=== PATIENT | female | born 1975 | race Caucasian/White ===

== ENCOUNTER 2017-03-17 08:58 | Emergency (ER) | payer OTHER ==
[~2017-03-17] VITALS: Ht 175.3 cm; Wt 91.2 kg
[~2017-03-17 08:58] MED LIST: CYCL-331 PO; HYDR-971 PO; PRED20TA PO
[2017-03-17] MEDS ORDERED: IPRATRPIUM/ALBUTEROL 0.5/2.5MG 3 ML NEBU. ONE (09:21)
--- NOTE | 2017-03-17 09:33 | PHYS DOC ---
Past History Past Medical History: No Pertinent History Past Surgical History: Appendectomy, Tubal ligation Smoking: Cigarettes, Less than 1pk/day Alcohol Use: Rarely Drug Use: None Adult General Chief Complaint Chief Complaint: COUGH HPI HPI 41-year-old female patient with history of smoking complaining of productive cough for the last 3 days with yellow and green sputum and shortness of breath with chest soreness during episodes of cough. Patient complaining of nasal congestion and sore throat because of cough and headache generalized weakness without fever and chills, vomiting and diarrhea, sick contact. Review of Systems Review of Systems Constitutional: Denies fever or chills [] Eyes: Denies change in visual acuity, redness, or eye pain [] HENT: Reports nasal congestion and sore throat [] Respiratory: Reports cough and shortness of breath [] Cardiovascular: No additional information not addressed in HPI [] GI: Denies abdominal pain, nausea, vomiting, bloody stools or diarrhea [] : Denies dysuria or hematuria [] Musculoskeletal: Denies back pain or joint pain [] Integument: Denies rash or skin lesions [] Neurologic: Denies headache, focal weakness or sensory changes [] Endocrine: Denies polyuria or polydipsia [] All other systems were reviewed and found to be within normal limits, except as documented in this note. Current Medications Current Medications Current Medications Medications (Trade) Dose Ordered Sig/Juan Start Time Stop Time Status Last Admin Dose Admin Albuterol/ Ipratropium (Duoneb) 3 ml STK-MED ONCE 03/17/17 09:21 03/17/17 09:22 DC Benzonatate (Tessalon Perle) 100 mg 1X ONCE 03/17/17 09:45 03/17/17 09:46 Ibuprofen (Motrin) 800 mg 1X ONCE 03/17/17 09:45 03/17/17 09:46 Allergies Allergies Allergies Coded Allergies Type Severity Reaction Last Updated Verified aspirin Allergy Intermediate 12/25/15 Yes Physical Exam Physical Exam Constitutional: Well developed, well nourished, moderate distress, non-toxic appearance. [] HENT: Normocephalic, atraumatic, bilateral external ears normal, oropharynx moist, pharyngeal erythema without oral exudates, nasal congestion Eyes: PERRLA, EOMI, conjunctiva normal, no discharge. [] Neck: Normal range of motion, no tenderness, supple, no stridor. [] Cardiovascular: Tachycardic, no murmur [] Lungs & Thorax: No respiratory distress, mild rhonchi bilaterally Abdomen: Bowel sounds normal, soft, no tenderness, no masses, no pulsatile masses. [] Skin: Warm, dry, no erythema, no rash. [] Back: No tenderness, no CVA tenderness. [] Extremities: No tenderness, no cyanosis, no clubbing, ROM intact, no edema. [] Neurologic: Alert and oriented X 3, normal motor function, normal sensory function, no focal deficits noted. [] Psychologic: Affect normal, judgement normal, mood normal. [] Current Patient Data Vital Signs Vital Signs Date Time Temp Pulse Resp B/P (MAP) Pulse Ox O2 Delivery O2 Flow Rate FiO2 03/17/17 09:25 100 Room Air 03/17/17 09:12 99.0 113 20 EKG EKG [] Radiology/Procedures Radiology/Procedures [] Course & Med Decision Making Course & Med Decision Making Pertinent Labs reviewed. (See chart for details) Evaluation of patient in ER showed 41-year-old male patient with complaining of productive cough for 3 days with shortness of breath and nasal congestion and chest soreness. She felt better with DuoNeb in ER. Flu test was negative. Patient instructed to quit smoking and plan to discharge home with diagnoses of acute bronchitis. [] Dragon Disclaimer Dragon Disclaimer This electronic medical record was generated, in whole or in part, using a voice recognition dictation system. Departure Departure: Impression: Primary Impression: Acute bronchitis Additional Impressions: Tobacco abuse Tobacco abuse counseling Dyspnea Disposition: 01 HOME, SELF-CARE (At 1035) Condition: IMPROVED Referrals: [facility] (PCP) Patient Instructions: Acute Bronchitis, Smoking Cessation Additional Instructions: Quit smoking Drink plenty of liquids Follow-up with your primary care physician in 3 -5 days if is not getting better Return to ER as needed Scripts Albuterol Sulfate (VENTOLIN HFA INHALER) 18 Gm Hfa.aer.ad 2 PUFF IH PRN Q4HRS Y for FOR ASTHMA, #1 INHALER 0 Refills Prov: STACY ROPER MD 03/17/17 Hydrocodone/Chlorphen P-Stirex (Tussionex Pennkinetic Susp) 115 Ml Justyna.er.12h 5 ML PO BID, #120 ML Prov: STACY ROPER MD 03/17/17 Methylprednisolone (MEDROL) 4 Mg Tab.ds.pk 1 PKG PO UD, #1 PKG Prov: STACY ROPER MD 03/17/17 Azithromycin (ZITHROMAX) 250 Mg Tablet 1 PKG PO UD, #6 TAB Prov: STACY ROPER MD 03/17/17 Problem Qualifiers STACY ROPER MD Mar 17, 2017 09:33
[2017-03-17] MEDS ORDERED: BENZONATATE 100 MG CAPSULE. PO ONE (09:45)
[2017-03-17] MEDS ORDERED: IBUPROFEN 600 MG TABLET. PO ONE (09:45)
[2017-03-17] MEDS ORDERED: IPRATRPIUM/ALBUTEROL 0.5/2.5MG 3 ML NEBU. NEB ONE (09:45)
[2017-03-17 09:50] VITALS: BP 110/73
[2017-03-17 10:28] LABS: INFLUENZA A PATIENT NEGATIVE (NEGATIVE); INFLUENZA B PATIENT NEGATIVE (NEGATIVE)
[2017-03-17] MEDS ORDERED: METH4TAB2 PO (10:39)
[2017-03-17] MEDS ORDERED: AZIT250T PO (10:39)
[2017-03-17] MEDS ORDERED: HYDR115S2 PO (10:39)
[2017-03-17] MEDS ORDERED: ALBU18HF IH (10:39)
== END 2017-03-17 10:59 | disposition home or self-care (01) ==
LOC: ER 08:58
DX: J20.9 Acute bronchitis, unspecified (principal); R06.00 Dyspnea, unspecified; F17.210 Nicotine dependence, cigarettes, uncomplicated; Z71.6 Tobacco abuse counseling; Z88.6 Allergy status to analgesic agent
CPT/HCPCS: 87804; 94640; 99284; J7620

== ENCOUNTER 2018-08-22 08:05 | Emergency (ER) | payer OTHER ==
[~2018-08-22] VITALS: Ht 175.3 cm; Wt 96.2 kg
[~2018-08-22 08:05] MED LIST changes: +ALBU2.5V8 IH; +AZIT250T PO; +HYDR-3165 PO; -HYDR-971 PO; +HYDR115S2 PO; +METH4TAB2 PO
[2018-08-22] MEDS ORDERED: PRED-220 PO (09:12)
--- NOTE | 2018-08-22 09:12 | PHYS DOC ---
Past History Past Medical History: No Pertinent History Past Surgical History: Appendectomy, Tubal ligation Smoking: Cigarettes, Less than 1pk/day Alcohol Use: Occasionally Drug Use: None Adult General Chief Complaint Chief Complaint: [facility] HPI 42-year-old female presents with right shoulder pain. The patient isn't having intermittent pain in his right shoulder. We'll weeks. 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 She presents today because she woke up this morning and the pain was worse and she had some tingling sensation in all 5 fingers. Her pain is mostly along the superior aspect of the shoulder but does radiate into the deltoid. She denies any specific injury or trauma. It just seemed to be gradually getting worse. She has been taking some ibuprofen without much relief. She denies any other injuries or complaints. Review of Systems Review of Systems Constitutional: Denies fever or chills [] Eyes: Denies change in visual acuity, redness, or eye pain [] HENT: Denies nasal congestion or sore throat [] Respiratory: Denies cough or shortness of breath [] Cardiovascular: No additional information not addressed in HPI [] GI: Denies abdominal pain, nausea, vomiting, bloody stools or diarrhea [] : Denies dysuria or hematuria [] Musculoskeletal: Right shoulder pain [] Integument: Denies rash or skin lesions [] Neurologic: Denies headache, focal weakness or sensory changes [] Endocrine: Denies polyuria or polydipsia [] All other systems were reviewed and found to be within normal limits, except as documented in this note. Allergies Allergies Allergies Coded Allergies Type Severity Reaction Last Updated Verified aspirin Allergy Intermediate 08/22/18 Yes Physical Exam Physical Exam Constitutional: Well developed, well nourished, no acute distress, non-toxic appearance. [] HENT: Normocephalic, atraumatic, bilateral external ears normal, oropharynx moist, no oral exudates, nose normal. [] Eyes: PERRLA, EOMI, conjunctiva normal, no discharge. [] Neck: Normal range of motion, no tenderness, supple, no stridor. [] Cardiovascular:Heart rate regular rhythm, no murmur [] Lungs & Thorax: Bilateral breath sounds clear to auscultation [] Abdomen: Bowel sounds normal, soft, no tenderness, no masses, no pulsatile masses. [] Skin: Warm, dry, no erythema, no rash. [] Back: No tenderness, no CVA tenderness. [] Extremities: Right shoulder limited range of motion testing due to pain, superior shoulder pain with empty can test. Tenderness over supraspinatus distribution.[] Neurologic: Alert and oriented X 3, normal motor function, normal sensory function, no focal deficits noted. [] Psychologic: Affect normal, judgement normal, mood normal. [] Current Patient Data Vital Signs Vital Signs Date Time Temp Pulse Resp B/P (MAP) Pulse Ox O2 Delivery O2 Flow Rate FiO2 08/22/18 08:16 98.4 80 18 99 Room Air EKG EKG [] Radiology/Procedures Radiology/Procedures [] Course & Med Decision Making Course & Med Decision Making Pertinent Labs and Imaging studies reviewed. (See chart for details) I believe the patient has supraspinatus tendinitis and/or bursitis of the right shoulder. I will place her on a steroid taper for one week. I have also advised that she establish a primary care physician and strongly consider physical therapy. I will give HER-2 days off work for the steroids to kick in. She is stable for discharge at this time. [] Dragon Disclaimer Dragon Disclaimer This electronic medical record was generated, in whole or in part, using a voice recognition dictation system. Departure Departure: Impression: Primary Impression: Right shoulder tendinitis Disposition: 01 HOME, SELF-CARE Condition: STABLE Referrals: PCP,NO (PCP) Scripts Prednisone (PREDNISONE) 10 Mg Tablet 10 MG PO UD for PREDNISONE TAPER, #27 TAB 0 Refills Take 4 tablets by mouth daily for 3 days, then take 3 tablets by mouth daily for 3 days, then take 2 tablet by mouth daily for 2 days, then take 1 tablet by mouth daily x 2 days, then stop. Prov: RODOLFO ORTEGA DO 08/22/18 RODOLFO ORTEGA DO August 22, 2018 09:12
--- NOTE | 2018-08-22 09:14 | RAD ---
SHOULDER 2+V RIGHT History: Pain Comparison: None. Findings: 3 views of the right shoulder submitted. No acute fracture or dislocation is identified by radiographs. Impression: 1. No acute osseous abnormality is identified by radiographs. Electronically signed by: Leno Murillo MD (08/22/2018 9:11 AM) [id number]
[2018-08-22 09:19] VITALS: BP 130/76
== END 2018-08-22 09:19 | disposition home or self-care (01) ==
LOC: ER 08:05
DX: M75.81 Other shoulder lesions, right shoulder (principal); F17.210 Nicotine dependence, cigarettes, uncomplicated; Z88.6 Allergy status to analgesic agent
CPT/HCPCS: 73030; 99284

== ENCOUNTER → 2018-10-13 | Outpatient (CLI) | payer OTHER ==
[~2018-10-13] MED LIST changes: +PRED-220 PO
--- NOTE | 2018-10-13 14:34 | RAD ---
Examination: 2 views of the right shoulder HISTORY: History of right shoulder pain COMPARISON: 08/22/2089 FINDINGS: The humerus head is within the glenoid. The acromioclavicular joint, glenohumeral joint demonstrates mild degenerative changes. There is no acute fracture or dislocation identified. IMPRESSION: No acute osseous findings. Electronically signed by: Shree Shen MD (10/13/2018 2:31 PM) [id number]
== END | disposition home or self-care (01) ==
LOC: DXRAD 13:42
PROVIDERS: ATTEND Orthopaedic Surgery Sports Medicine
DX: M25.511 Pain in right shoulder (principal)
CPT/HCPCS: 73030

== ENCOUNTER → 2019-12-28 | Outpatient (CLI) | payer MEDICAID ==
--- NOTE | 2019-12-28 16:20 | RAD ---
INDICATION: Reason: CHEST PAIN, COUGH X 3 WEEKS / Spl. Instructions: / History: COMPARISON: December 2013 FINDINGS: 2 view of chest obtained. Cardiac silhouette is similar to prior. No definite new region of airspace consolidation or pulmonary edema. IMPRESSION: * No definite focal airspace consolidation. Electronically signed by: dAan Blanc MD (12/28/2019 4:17 PM) [id number]
== END | disposition home or self-care (01) ==
LOC: PMG 12:54
PROVIDERS: ATTEND Family Medicine
DX: R05 Cough (principal); R07.9 Chest pain, unspecified
CPT/HCPCS: 71046

== ENCOUNTER 2020-02-17 12:08 | Emergency (ER) | payer MEDICAID ==
[~2020-02-17] VITALS: Ht 175.3 cm; Wt 100.0 kg
[2020-02-17 12:25] VITALS: BP 166/90
--- NOTE | 2020-02-17 12:32 | PHYS DOC ---
Past History Past Medical History: No Pertinent History Past Surgical History: Appendectomy, Tubal ligation Smoking: Cigarettes, Less than 1pk/day Alcohol Use: Occasionally Drug Use: None General Adult EDM: Chief Complaint: LOWEREXTREMITY INJURY HPI: HPI: Patient is a 44-year-old female who presented to ER for evaluation of right ankle pain after she twisted his 2 days ago when she stepped down a step. Patient denies any knee pain. Patient has been walking since. She woke up this morning and the swelling get worse so she came here for evaluation. Review of Systems: Review of Systems: Constitutional: Denies fever or chills Eyes: Denies change in visual acuity HENT: Denies nasal congestion or sore throat Respiratory: Denies cough or shortness of breath Cardiovascular: Denies chest pain or edema GI: Denies abdominal pain, nausea, vomiting, bloody stools or diarrhea : Denies dysuria Musculoskeletal: Positive for right ankle pain and swelling. Integument: Denies rash Neurologic: Denies headache, focal weakness or sensory changes Endocrine: Denies polyuria or polydipsia Lymphatic: Denies swollen glands Psychiatric: Denies depression or anxiety Allergies: Allergies: Allergies Coded Allergies Type Severity Reaction Last Updated Verified aspirin Allergy Intermediate 08/22/18 Yes Physical Exam: PE: Constitutional: Well developed, well nourished, no acute distress, non-toxic appearance. [] HENT: Normocephalic, atraumatic, bilateral external ears normal, oropharynx moist, no oral exudates, nose normal. [] Eyes: PERRLA, EOMI, conjunctiva normal, no discharge. [] Neck: Normal range of motion, no tenderness, supple, no stridor. [] Cardiovascular:Heart rate regular rhythm, no murmur [] Lungs & Thorax: Bilateral breath sounds clear to auscultation [] Abdomen: Bowel sounds normal, soft, no tenderness, no masses, no pulsatile masses. [] Skin: Warm, dry, no erythema, no rash. [] Back: No tenderness, no CVA tenderness. [] Extremities: Right ankle is swollen, tender to palpation on medial and lateral malleolus area, the ankle joint is stable. There is no tenderness to palpation all around the right knee area. Neurologic: Alert and oriented X 3, normal motor function, normal sensory function, no focal deficits noted. [] Psychologic: Affect normal, judgement normal, mood normal. [] EKG: EKG: [] Radiology/Procedures: Radiology/Procedures: X-ray of the right ankle were read by this physician, no fracture or dislocation Heart Score: Risk Factors: Risk Factors: DM, Current or recent (<one month) smoker, HTN, HLP, family history of CAD, obesity. Risk Scores: Score 0 - 3: 2.5% MACE over next 6 weeks - Discharge Home Score 4 - 6: 20.3% MACE over next 6 weeks - Admit for Clinical Observation Score 7 - 10: 72.7% MACE over next 6 weeks - Early Invasive Strategies Course & Med Decision Making: Course & Med Decision Making Pertinent Labs and Imaging studies reviewed. (See chart for details) [] Dragon Disclaimer: Dragon Disclaimer: This electronic medical record was generated, in whole or in part, using a voice recognition dictation system. Departure Departure: Impression: Primary Impression: Ankle sprain Disposition: 01 DC HOME SELF CARE/HOMELESS Condition: STABLE Referrals: FERNY CORADO MD (PCP) FOLLOW UP WITH YOUR DOCTOR NEEDED Patient Instructions: Ankle Sprain Additional Instructions: Thank you for visiting our Emergency Department. We appreciate you trusting us with your care. If any additional problems come up don't hesitate to return to visit us. Please follow up with your primary care provider so they can plan additional care if needed and know about the problem that you had. If symptoms worsen come back to the Emergency Department. Any concerning symptoms that start such as chest pain, shortness of air, weakness or numbness on one side of the body, running high fevers or any other concerning symptoms return to the ER. HUNTER FUNES DO Feb 17, 2020 12:32
--- NOTE | 2020-02-17 13:23 | RAD ---
EXAM: Right ankle 3 views. HISTORY: Pain after injury. COMPARISON: None. FINDINGS: Three views of the right ankle are obtained. Soft tissue swelling is noted medially and laterally. No fractures are identified. Alignment is normal. Joint spaces are maintained. There are small plantar and posterior calcaneal spurs. IMPRESSION: 1. Soft tissue swelling. No fracture. Electronically signed by: Wayne King MD (02/17/2020 1:20 PM) [id number]
== END 2020-02-17 13:19 | disposition home or self-care (01) ==
LOC: ER 12:08
DX: S93.401A Sprain of unspecified ligament of right ankle, initial encounter (principal); F17.210 Nicotine dependence, cigarettes, uncomplicated; Z88.6 Allergy status to analgesic agent; X50.9XXA Other and unspecified overexertion or strenuous movements or postures, initial encounter; Y93.89 Activity, other specified; Y92.89 Other specified places as the place of occurrence of the external cause; Y99.8 Other external cause status
CPT/HCPCS: 73610; 99283